=== PATIENT | male | born 1960 | race American Indian/Alaskan Native ===

== ENCOUNTER 2017-04-05 16:34 | Emergency (ER) | payer SELFPAY ==
[2017-04-05 16:43] VITALS: BP 170/97
--- NOTE | 2017-04-05 17:10 | Emergency Department Report ---
- General Chief complaint: Skin/Abscess/Foreign Body Stated complaint: WART ON THIGH Time Seen by Provider: 04/05/17 16:48 Source: patient Mode of arrival: Ambulatory Limitations: No Limitations - History of Present Illness Initial comments: This is a 56-year-old male nontoxic, well nourished in appearance, no acute signs of distress presents to the ED with c/o of wart to the posterior right thigh x30 years. Patient stated he had a wart as a teenager but got bigger over time. Patient denies follow-up with a primary care doctor. Denies any fever, chills, pus, drainage, nausea, vomiting, chest pain, shortness of breathe. Patient stated he came in today because he is not working and was around the hospital. Patient denies any allergies or PMH. MD complaint: other (wart) -: year(s) Severity: mild Severity scale (0 -10): 8 Consistency: constant Improves with: none Worsens with: none Context: none Associated symptoms: denies other symptoms Treatments Prior to Arrival: none - Related Data Previous Rx's Medication Instructions Recorded Last Taken Type HYDROcodone/APAP 5-325 [[place] 1 each PO Q6HR PRN #10 tablet 12/26/13 Unknown Rx 5/325] Ibuprofen [Motrin] 800 mg PO Q8H PRN #20 tablet 12/26/13 Unknown Rx Sulfamethoxazole/Trimethoprim 1 each PO BID #20 tablet 12/26/13 Unknown Rx [Bactrim Ds] Ibuprofen [Motrin] 600 mg PO Q8H PRN #30 04/05/17 Unknown Rx Allergies Allergy/AdvReac Type Severity Reaction Status Date / Time No Known Allergies Allergy Unverified 12/26/13 19:27 Abscess Boil HPI - HPI Chief Complaint: Skin/Abscess/Foreign Body Stated Complaint: WART ON THIGH Time Seen by Provider: 04/05/17 16:48 Home Medications: Previous Rx's Medication Instructions Recorded Last Taken Type HYDROcodone/APAP 5-325 [[place] 1 each PO Q6HR PRN #10 tablet 12/26/13 Unknown Rx 5/325] Ibuprofen [Motrin] 800 mg PO Q8H PRN #20 tablet 12/26/13 Unknown Rx Sulfamethoxazole/Trimethoprim 1 each PO BID #20 tablet 12/26/13 Unknown Rx [Bactrim Ds] Ibuprofen [Motrin] 600 mg PO Q8H PRN #30 04/05/17 Unknown Rx Allergies/Adverse Reactions: Allergies Allergy/AdvReac Type Severity Reaction Status Date / Time No Known Allergies Allergy Unverified 12/26/13 19:27 ED Review of Systems ROS: Stated complaint: WART ON THIGH Other details as noted in HPI Constitutional: denies: chills, fever Eyes: denies: eye pain, eye discharge, vision change ENT: denies: ear pain, throat pain Respiratory: denies: cough, shortness of breath, wheezing Cardiovascular: denies: chest pain, palpitations Endocrine: no symptoms reported Gastrointestinal: denies: abdominal pain, nausea, diarrhea Genitourinary: denies: urgency, dysuria Musculoskeletal: denies: back pain, joint swelling, arthralgia Skin: denies: rash, lesions Neurological: denies: headache, weakness, paresthesias Psychiatric: denies: anxiety, depression Hematological/Lymphatic: denies: easy bleeding, easy bruising ED Past Medical Hx - Past Medical History Previous Medical History?: No - Surgical History Past Surgical History?: No - Social History Smoking Status: Current Some Day Smoker Substance Use Type: Alcohol - Medications Home Medications: Home Medications Medication Instructions Recorded Confirmed Last Taken Type HYDROcodone/APAP 5-325 [[place] 1 each PO Q6HR PRN #10 tablet 12/26/13 Unknown Rx 5/325] Ibuprofen [Motrin] 800 mg PO Q8H PRN #20 tablet 12/26/13 Unknown Rx Sulfamethoxazole/Trimethoprim 1 each PO BID #20 tablet 12/26/13 Unknown Rx [Bactrim Ds] Ibuprofen [Motrin] 600 mg PO Q8H PRN #30 04/05/17 Unknown Rx ED Physical Exam - General Limitations: No Limitations General appearance: alert, in no apparent distress - Head Head exam: Present: atraumatic, normocephalic - Eye Eye exam: Present: normal appearance - ENT ENT exam: Present: mucous membranes moist - Neck Neck exam: Present: normal inspection - Respiratory Respiratory exam: Present: normal lung sounds bilaterally. Absent: respiratory distress - Cardiovascular Cardiovascular Exam: Present: regular rate, normal rhythm. Absent: systolic murmur, diastolic murmur, rubs, gallop - GI/Abdominal GI/Abdominal exam: Present: soft, normal bowel sounds - Rectal Rectal exam: Present: deferred - Extremities Exam Extremities exam: Present: normal inspection - Back Exam Back exam: Present: normal inspection - Neurological Exam Neurological exam: Present: alert, oriented X3 - Psychiatric Psychiatric exam: Present: normal affect, normal mood - Skin Skin exam: Present: warm, dry, intact, normal color. Absent: rash - Other Other exam information: 5 cm x 5 cm wart noted to the right posterior thigh. No induration or flutance noted. No pus or drainage. Not bleeding. Nontender to touch. No cellultitis noted. No erythema. ED Course Vital Signs 04/05/17 16:40 Temperature 98.2 F Pulse Rate 66 Respiratory 18 Rate Blood Pressure 170/97 O2 Sat by Pulse 100 Oximetry - Reevaluation(s) Reevaluation #1: 04/05/17 17:12 Patient is speaking in full sentences with no signs of distress noted. ED Medical Decision Making - Medical Decision Making This is a 56-year-old male that presents with wart. Patient is stable and was examined by me. There is no signs of abscess or cellulitis noted. No bleeding noted. Patient receive Motrin for pain as patient requested,. Patient was instructed to Follow-up with a primary care doctor/general surgery in 3-5 days or if symptoms worsen and continue return to emergency room as soon as possible. At time time of discharge, the patient does not seem toxic or ill in appearance. No acute signs of distress noted. Patient agrees to discharge treatment plan of care. No further questions noted by the patient. Critical care attestation.: If time is entered above; I have spent that time in minutes in the direct care of this critically ill patient, excluding procedure time. ED Disposition Clinical Impression: Wart Qualifiers: Viral wart type: unspecified viral wart Qualified Code(s): B07.9 - Viral wart, unspecified Disposition: DC-01 TO HOME OR SELFCARE Is pt being admited?: No Does the pt Need Aspirin: No Condition: Stable Additional Instructions: Follow-up with a primary care doctor/general surgery in 3-5 days or if symptoms worsen and continue return to emergency room as soon as possible. Prescriptions: Ibuprofen [Motrin] 600 mg PO Q8H PRN #30 PRN Reason: Pain Referrals: FENG ARANGO MD [Primary Care Provider] - 3-5 Days LIBIA RUBI MD [Staff Physician] - 3-5 Days DUGLAS VILLAFANA MD [Staff Physician] - 3-5 Days SHABANA VELASQUEZ MD [Staff Physician] - 3-5 Days [facility] [Outside] - [facility] - [facility]5 Days Forms: Work/School Release Form(ED)
[2017-04-05] MEDS ORDERED: MOTRIN PO ONE (17:30)
== END 2017-04-05 17:46 | disposition home or self-care (01) ==
LOC: ED 16:34
DX: B07.8 Other viral warts (principal); F17.200 Nicotine dependence, unspecified, uncomplicated
CPT/HCPCS: 99282